=== PATIENT | female | born 1990 | race Caucasian/White ===

== ENCOUNTER 2025-05-14 19:56 | Inpatient (IN) | payer BC, SELFPAY ==
[2025-05-14 19:55] VITALS: BMI 31.9
[2025-05-14 20:04] VITALS: RESP 16; TEMP 36.8
[2025-05-14 20:05] VITALS: BP 125/80; PULSE 96
[2025-05-14 20:06] VITALS: PULSE 104; O2SAT 97
[2025-05-14] MEDS: Lactated Ringers 1,000 ML 50 ML IV (20:15)
[2025-05-14 20:54] LABS: Hematocrit 35.3 % (37-47); Hemoglobin 11.6 g/dL (12.0-15.0); Immature Granulocytes Count 0.070 X10^3/uL (0.0-0.0); Mean Corp Hgb Conc 32.9 g/dL (32-36); Mean Corpuscular Volume 83.6 fL (81-99); Mean Platelet Vol. 11.4 fl (6.2-12.0); NRBC Flagged by Analyzer 0 % (0-5); Platelet Count 209 K/mm3 (150-450); RBC Distribution Width CV 14.5 % (11.6-14.6); RBC Distribution Width SD 43.5 fl (35.1-43.9); Red Blood Count 4.22 M/mm3 (4.2-5.4); White Blood Count 9.5 K/mm3 (4.4-11.0)
[2025-05-14 21:06] LABS: Syphilis Antibodies Nonreactive (Nonreactive)
[2025-05-14 21:15] VITALS: BP 132/79; PULSE 100; RESP 16; TEMP 36.9
[2025-05-14] MEDS: Insulin NPH Human 100 UNITS/ML PEN 22 UNITS SC (22:03)
[2025-05-14 22:52] LABS: Barbiturate Urine NEGATIVE (< 200 ng/mL); Benzodiazepine Urine NEGATIVE (< 200 ng/mL); PCP Urine NEGATIVE (< 25 ng/mL); THC Urine NEGATIVE (< 50 ng/mL)
[2025-05-15] VITALS (57 sets, daily range): BP systolic 101–133; BP diastolic 55–73; PULSE 78–115; RESP 14–18; TEMP 36.3–37.4; O2SAT 87–100
[2025-05-15] MEDS: 0.9% Normal Saline Single 100 ML IV.SOLN. INTRA-UTER (07:44)
[2025-05-15] MEDS: Oxytocin 15 Units/NS 250ml 15 UNITS/250 ML IV.SOLN 2 UNITS IV (09:17)
[2025-05-15] MEDS: Lactated Ringers 1,000 ML 50 ML IV (13:51)
[2025-05-15] MEDS: Lactated Ringers 1,000 ML 999 ML IV (17:25)
[2025-05-15] MEDS: fentaNYL-bupivacaine (epidural) 100 ML BAG EPIDURAL ×2 (18:33→22:51)
[2025-05-15] MEDS: LACTATED RINGERS 500 ML 999 ML IV (21:45)
[2025-05-15] MEDS: Insulin NPH Human 100 UNITS/ML PEN 22 UNITS SC (21:47)
[2025-05-15] MEDS: Oxytocin 15 Units/NS 250ml 15 UNITS/250 ML IV.SOLN 334 UNITS IV (23:05)
[2025-05-15] MEDS: Oxytocin 15 Units/NS 250ml 15 UNITS/250 ML IV.SOLN 83 UNITS IV (23:40)
[2025-05-16] VITALS (22 sets, daily range): BP systolic 98–133; BP diastolic 58–86; PULSE 84–122; RESP 16–18; TEMP 36.1–36.8; O2SAT 95–99
[2025-05-17 02:21] VITALS: BP 114/72; PULSE 86; RESP 16; TEMP 36.3; O2SAT 98
[2025-05-17 09:45] VITALS: BP 114/83; PULSE 81; RESP 14; TEMP 36.9; O2SAT 98
== END 2025-05-17 13:40 | disposition home or self-care (01) | DRG 807 ==
PROVIDERS: Obstetrics & Gynecology; Admitting Provider Obstetrics & Gynecology; Visit Provider Obstetrics & Gynecology
DX: O24.424 Gestational diabetes mellitus in childbirth, insulin controlled (principal); Z37.0 Single live birth; O69.81X0 Labor and delivery complicated by cord around neck, without compression, not applicable or unspecified; O76 Abnormality in fetal heart rate and rhythm complicating labor and delivery; O70.0 First degree perineal laceration during delivery; Z86.711 Personal history of pulmonary embolism; Z86.718 Personal history of other venous thrombosis and embolism; Z3A.38 38 weeks gestation of pregnancy; Z86.59 Personal history of other mental and behavioral disorders
CPT/HCPCS: 59025; 59050; 80307; 82962; 85025; 86780; 86850; 86900; 86901; 99221; G0378